=== PATIENT | female | born 1930 | race Asian ===

== ENCOUNTER → 2016-08-10 | Outpatient (CLI) | payer MEDICARE, OTHER ==
[~2016-08-10] VITALS: Ht 132.1 cm; Wt 75.0 kg
[~2016-08-10] MED LIST: ASPI-449 PO; ASPI81TA2 PO; ATOR40TA28 PO; BUME2TAB18 PO; CILO100T20 PO; DSS100 PO; FOLI0.8T2 PO; GLIM4 PO; GLIP5 PO; OMEP20 PO
[2016-08-10 11:40] VITALS: BP 137/65
== END | disposition home or self-care (01) ==
LOC: SRCNTR 11:11
PROVIDERS: ATTEND Internal Medicine Critical Care Medicine
DX: J96.10 Chronic respiratory failure, unspecified whether with hypoxia or hypercapnia (principal); I10 Essential (primary) hypertension; I50.9 Heart failure, unspecified; E66.01 Morbid (severe) obesity due to excess calories; G47.33 Obstructive sleep apnea (adult) (pediatric)
CPT/HCPCS: G0463

== ENCOUNTER → 2016-10-07 | Outpatient (CLI) | payer MEDICARE, OTHER ==
[~2016-10-07] MED LIST changes: -ASPI-449 PO; -ASPI81TA2 PO; -FOLI0.8T2 PO; -GLIM4 PO
== END | disposition home or self-care (01) ==
LOC: RADPV 10:16
PROVIDERS: ATTEND Internal Medicine Critical Care Medicine
DX: J44.9 Chronic obstructive pulmonary disease, unspecified (principal); I51.7 Cardiomegaly; Z49.01 Encounter for fitting and adjustment of extracorporeal dialysis catheter
CPT/HCPCS: 71020

== ENCOUNTER → 2016-10-12 | Outpatient (CLI) | payer MEDICARE, OTHER ==
[~2016-10-12] VITALS: Ht 137.2 cm; Wt 74.0 kg
[~2016-10-12] MED LIST changes: +ASPI81TA2 PO; +FOLI0.8T2 PO
[2016-10-12 11:46] VITALS: BP 129/60
== END | disposition home or self-care (01) ==
LOC: SRCNTR 11:41
PROVIDERS: ATTEND Internal Medicine Critical Care Medicine
DX: J96.10 Chronic respiratory failure, unspecified whether with hypoxia or hypercapnia (principal); I11.0 Hypertensive heart disease with heart failure; I50.9 Heart failure, unspecified; G47.33 Obstructive sleep apnea (adult) (pediatric); E66.01 Morbid (severe) obesity due to excess calories
CPT/HCPCS: G0463

== ENCOUNTER → 2016-12-21 | Outpatient (CLI) | payer MEDICARE, OTHER ==
[~2016-12-21] VITALS: Ht 142.2 cm; Wt 75.5 kg
[2016-12-21 10:56] VITALS: BP 123/56
== END | disposition home or self-care (01) ==
LOC: SRCNTR 10:45
PROVIDERS: ATTEND Internal Medicine Critical Care Medicine
DX: I11.0 Hypertensive heart disease with heart failure (principal); I50.9 Heart failure, unspecified; J96.10 Chronic respiratory failure, unspecified whether with hypoxia or hypercapnia; E66.01 Morbid (severe) obesity due to excess calories; G47.33 Obstructive sleep apnea (adult) (pediatric); E11.9 Type 2 diabetes mellitus without complications; E78.00 Pure hypercholesterolemia, unspecified; M19.90 Unspecified osteoarthritis, unspecified site
CPT/HCPCS: G0463

== ENCOUNTER → 2017-03-17 | Outpatient (CLI) | payer MEDICARE, OTHER ==
[~2017-03-17] VITALS: Ht 137.2 cm; Wt 76.5 kg
[~2017-03-17] MED LIST changes: +SEVEC800 PO
[2017-03-17 11:47] VITALS: BP 131/64
== END | disposition home or self-care (01) ==
LOC: SRCNTR 10:48
PROVIDERS: ATTEND Internal Medicine Critical Care Medicine
DX: G47.33 Obstructive sleep apnea (adult) (pediatric) (principal); I13.2 Hypertensive heart and chronic kidney disease with heart failure and with stage 5 chronic kidney disease, or end stage renal disease; E11.22 Type 2 diabetes mellitus with diabetic chronic kidney disease; N18.6 End stage renal disease; I50.9 Heart failure, unspecified; E66.01 Morbid (severe) obesity due to excess calories; J96.10 Chronic respiratory failure, unspecified whether with hypoxia or hypercapnia; K62.5 Hemorrhage of anus and rectum; M10.9 Gout, unspecified; Z79.82 Long term (current) use of aspirin; Z99.2 Dependence on renal dialysis
CPT/HCPCS: G0463

== ENCOUNTER → 2017-06-19 | Outpatient (CLI) | payer MEDICARE, OTHER ==
[~2017-06-19] VITALS: Ht 142.2 cm; Wt 78.5 kg
[~2017-06-19] MED LIST changes: -ASPI81TA2 PO; +ASPI81TA39 PO
[2017-06-19 11:56] VITALS: BP 161/65
== END | disposition home or self-care (01) ==
LOC: SRCNTR 11:21
PROVIDERS: ATTEND Internal Medicine Critical Care Medicine
DX: G47.33 Obstructive sleep apnea (adult) (pediatric) (principal); E66.01 Morbid (severe) obesity due to excess calories; I13.2 Hypertensive heart and chronic kidney disease with heart failure and with stage 5 chronic kidney disease, or end stage renal disease; N18.6 End stage renal disease; I50.9 Heart failure, unspecified; Z99.2 Dependence on renal dialysis; M19.90 Unspecified osteoarthritis, unspecified site; E78.00 Pure hypercholesterolemia, unspecified
CPT/HCPCS: G0463

== ENCOUNTER → 2017-08-16 | Outpatient (CLI) | payer MEDICARE, OTHER ==
[~2017-08-16] VITALS: Ht 137.2 cm; Wt 79.0 kg
[2017-08-16 12:27] VITALS: BP 125/66
== END | disposition home or self-care (01) ==
LOC: SRCNTR 12:20
PROVIDERS: ATTEND Internal Medicine Critical Care Medicine
DX: I13.2 Hypertensive heart and chronic kidney disease with heart failure and with stage 5 chronic kidney disease, or end stage renal disease (principal); N18.6 End stage renal disease; I50.9 Heart failure, unspecified; E66.01 Morbid (severe) obesity due to excess calories; G47.33 Obstructive sleep apnea (adult) (pediatric); J96.10 Chronic respiratory failure, unspecified whether with hypoxia or hypercapnia; R60.0 Localized edema; Z99.2 Dependence on renal dialysis
CPT/HCPCS: G0463

== ENCOUNTER → 2017-11-20 | Outpatient (CLI) | payer MEDICARE, OTHER | END | disposition home or self-care (01) | LOC: RADPV 14:35 | PROVIDERS: ATTEND Internal Medicine Critical Care Medicine | DX: I70.0 Atherosclerosis of aorta (principal); I51.7 Cardiomegaly; G47.33 Obstructive sleep apnea (adult) (pediatric) | CPT/HCPCS: 71046 ==

== ENCOUNTER → 2017-11-29 | Outpatient (CLI) | payer MEDICARE, OTHER ==
[~2017-11-29] VITALS: Ht 137.2 cm; Wt 82.0 kg
[2017-11-29 13:54] VITALS: BP 142/41
== END | disposition home or self-care (01) ==
LOC: SRCNTR 13:48
PROVIDERS: ATTEND Internal Medicine Critical Care Medicine
DX: G47.33 Obstructive sleep apnea (adult) (pediatric) (principal); I13.0 Hypertensive heart and chronic kidney disease with heart failure and stage 1 through stage 4 chronic kidney disease, or unspecified chronic kidney disease; N18.6 End stage renal disease; I50.9 Heart failure, unspecified; J96.11 Chronic respiratory failure with hypoxia; E66.01 Morbid (severe) obesity due to excess calories
CPT/HCPCS: G0463

== ENCOUNTER → 2018-08-17 | Outpatient (CLI) | payer MEDICARE, OTHER ==
[~2018-08-17] VITALS: Ht 157.5 cm; Wt 86.5 kg
[2018-08-17 14:02] VITALS: BP 147/60
== END | disposition home or self-care (01) ==
LOC: SRCNTR 13:41
PROVIDERS: ATTEND Internal Medicine Critical Care Medicine
DX: G47.33 Obstructive sleep apnea (adult) (pediatric) (principal); I13.2 Hypertensive heart and chronic kidney disease with heart failure and with stage 5 chronic kidney disease, or end stage renal disease; E11.22 Type 2 diabetes mellitus with diabetic chronic kidney disease; N18.6 End stage renal disease; I50.9 Heart failure, unspecified; J96.10 Chronic respiratory failure, unspecified whether with hypoxia or hypercapnia; J44.1 Chronic obstructive pulmonary disease with (acute) exacerbation; E78.00 Pure hypercholesterolemia, unspecified; M19.90 Unspecified osteoarthritis, unspecified site; M10.9 Gout, unspecified; E66.01 Morbid (severe) obesity due to excess calories; Z88.8 Allergy status to other drugs, medicaments and biological substances
CPT/HCPCS: G0463

== ENCOUNTER → 2018-11-21 | Outpatient (CLI) | payer MEDICARE, OTHER ==
[~2018-11-21] MED LIST changes: -FOLI0.8T2 PO; -OMEP20 PO
== END | disposition home or self-care (01) ==
LOC: RADPV 11:28
PROVIDERS: ATTEND Internal Medicine Critical Care Medicine
DX: J44.1 Chronic obstructive pulmonary disease with (acute) exacerbation (principal); I51.7 Cardiomegaly; I70.0 Atherosclerosis of aorta; I50.9 Heart failure, unspecified

== ENCOUNTER → 2020-10-23 | Outpatient (CLI) | payer MEDICARE, OTHER ==
[~2020-10-23] MED LIST changes: +AMLO2.5T29 PO; -BUME2TAB18 PO; +BUME2TAB5 PO; +GABA-529 PO; +SEVE800T17 PO; -SEVEC800 PO
[2020-10-23 10:32] VITALS: BP 148/60
== END | disposition home or self-care (01) ==
LOC: SRCNTR 09:52
PROVIDERS: ATTEND Internal Medicine Critical Care Medicine
DX: E66.01 Morbid (severe) obesity due to excess calories (principal); G47.33 Obstructive sleep apnea (adult) (pediatric); I13.2 Hypertensive heart and chronic kidney disease with heart failure and with stage 5 chronic kidney disease, or end stage renal disease; E11.22 Type 2 diabetes mellitus with diabetic chronic kidney disease; N18.6 End stage renal disease; I50.9 Heart failure, unspecified; J96.10 Chronic respiratory failure, unspecified whether with hypoxia or hypercapnia; M19.90 Unspecified osteoarthritis, unspecified site; M10.9 Gout, unspecified; E78.00 Pure hypercholesterolemia, unspecified
CPT/HCPCS: G0463; Z7500

== ENCOUNTER → 2020-12-04 | Outpatient (CLI) | payer MEDICARE, OTHER ==
[~2020-12-04] MED LIST changes: -GLIP5 PO
== END | disposition home or self-care (01) ==
LOC: RADPV 09:56
PROVIDERS: ATTEND Internal Medicine Critical Care Medicine
DX: R06.02 Shortness of breath (principal); I50.20 Unspecified systolic (congestive) heart failure
CPT/HCPCS: 71046

== ENCOUNTER → 2020-12-30 | Outpatient (CLI) | payer MEDICARE, OTHER ==
[~2020-12-30] VITALS: Ht 152.4 cm; Wt 78.0 kg
[2020-12-30 10:14] VITALS: BP 153/60
== END | disposition home or self-care (01) ==
LOC: SRCNTR 09:48
PROVIDERS: ATTEND Internal Medicine Critical Care Medicine
DX: G47.33 Obstructive sleep apnea (adult) (pediatric) (principal); I13.2 Hypertensive heart and chronic kidney disease with heart failure and with stage 5 chronic kidney disease, or end stage renal disease; I50.9 Heart failure, unspecified; J96.10 Chronic respiratory failure, unspecified whether with hypoxia or hypercapnia; N18.6 End stage renal disease; E66.01 Morbid (severe) obesity due to excess calories
CPT/HCPCS: G0463; Z7500

== ENCOUNTER 2021-05-12 08:08 | Day surgery (SDC) | payer MEDICARE, OTHER ==
[2021-05-10 09:03] LABS: COVID AG,FIA SOURCE NASOPHARYNGEAL
[~2021-05-12] VITALS: Ht 149.9 cm; Wt 76.0 kg
[~2021-05-12 08:08] MED LIST changes: -AMLO2.5T29 PO; +AMLO2.5T96 PO; -ASPI81TA39 PO; +ATOR20TA86 PO; -ATOR40TA28 PO; +BUME1TAB34 PO; -BUME2TAB5 PO; +CHOL500013 PO; -CILO100T20 PO; -DSS100 PO; +FLUT16H NASAL; +FLUT1AER IH; +GABA-1216 PO; -GABA-529 PO; +SODIUM CHLORIDE 0.9% 1,000 ML IV ONE; +SODIUM CHLORIDE 0.9% 1,000 ML ONE
[2021-05-12] MEDS ORDERED: LIDOCAINE/PF 2% 5 ML SYRINGE IVP ONE (08:09)
[2021-05-12] MEDS ORDERED: PROPOFOL 1% 20 ML VIAL IVP ONE (08:09)
[2021-05-12 09:36] LABS: GLUCOMETER DEV NAME(LOC) SDS.; GLUCOSE,POINT OF CARE 113 MG/DL (70-110)
[2021-05-12] MEDS ORDERED: OXYGEN THERAPY IH SCH (20:00)
== END 2021-05-12 11:40 | disposition home or self-care (01) ==
LOC: SURGERY 08:08
PROVIDERS: ATTEND Specialist
DX: K62.5 Hemorrhage of anus and rectum (principal); K57.30 Diverticulosis of large intestine without perforation or abscess without bleeding; K64.0 First degree hemorrhoids; E78.00 Pure hypercholesterolemia, unspecified; J44.9 Chronic obstructive pulmonary disease, unspecified; N18.9 Chronic kidney disease, unspecified; M19.90 Unspecified osteoarthritis, unspecified site; K62.89 Other specified diseases of anus and rectum; Z79.899 Other long term (current) drug therapy; Z98.890 Other specified postprocedural states
CPT/HCPCS: 45380; 82962; 87426; 88305; 93005; C1769; C9803; J2704; J3490; J7030

== ENCOUNTER → 2021-05-19 | Outpatient (CLI) | payer MEDICARE, OTHER ==
[~2021-05-19] MED LIST changes: -SODIUM CHLORIDE 0.9% 1,000 ML IV ONE; -SODIUM CHLORIDE 0.9% 1,000 ML ONE
[2021-05-19 10:51] VITALS: BP 167/68
== END | disposition home or self-care (01) ==
LOC: SRCNTR 09:42
PROVIDERS: ATTEND Internal Medicine Critical Care Medicine
DX: G47.33 Obstructive sleep apnea (adult) (pediatric) (principal); J96.10 Chronic respiratory failure, unspecified whether with hypoxia or hypercapnia; I13.2 Hypertensive heart and chronic kidney disease with heart failure and with stage 5 chronic kidney disease, or end stage renal disease; I50.9 Heart failure, unspecified; N18.6 End stage renal disease; E66.01 Morbid (severe) obesity due to excess calories
CPT/HCPCS: G0463

== ENCOUNTER → 2021-08-13 | Outpatient (CLI) | payer MEDICARE, OTHER ==
[2021-08-13 10:12] VITALS: BP 136/56
== END | disposition home or self-care (01) ==
LOC: SRCNTR 09:50
PROVIDERS: ATTEND Internal Medicine Critical Care Medicine
DX: I13.2 Hypertensive heart and chronic kidney disease with heart failure and with stage 5 chronic kidney disease, or end stage renal disease (principal); I50.9 Heart failure, unspecified; N18.6 End stage renal disease; E66.01 Morbid (severe) obesity due to excess calories; G47.33 Obstructive sleep apnea (adult) (pediatric); J96.10 Chronic respiratory failure, unspecified whether with hypoxia or hypercapnia
CPT/HCPCS: G0463; Z7500